=== PATIENT | female | born 1990 | race Hispanic/Latino ===

== ENCOUNTER 2021-01-17 14:50 | Observation (INO) | payer BC ==
[2021-01-17 15:17] LABS: #Basophils 0.1 thou/uL (0.0-0.2); #Eosinphils 0.1 thou/uL (0.0-0.7); #Lymphocytes 2.2 thou/uL (1.20-3.40); #Monocytes 1.2 thou/uL (0.11-0.59); #Neutrophils 14.2 thou/uL (1.40-6.50); %Basophils 0.3 % (0.0-1.0); %Eosinophils 0.8 % (0.0-10.0); %Lymphocytes 12.2 % (21.0-51.0); %Monocytes 6.8 % (0.0-10.0); %Neutrophils 79.9 % (42.0-75.0); Hemoglobin 12.5 g/dL (12.0-16.0); Mean Corpuscular HGB CONC 35.2 g/dL (32.0-36.0); Mean Corpuscular Hemoglobin 29.6 pg (27.0-31.0); Mean Corpuscular Volume 84.2 fL (78.0-98.0); Mean Platelet Volume 7.5 fL (7.4-10.4); Platelet Count 378 thou/uL (130-400); RBC Distribution Width 12.9 % (11.5-14.5); Red Blood Cell (RBC) Count 4.22 mill/uL (4.20-5.40); White Blood Cell (WBC) Count 17.8 thou/uL (4.8-10.8)
[2021-01-17 15:39] LABS: ALT (SGPT) 8 U/L (8-55); AST (SGOT) 9 U/L (5-34); Alkaline Phosphatase 65 U/L (40-110); Anion Gap 13 mmol/L (10-20); BUN (Urea Nitrogen) 8 mg/dL (7.0-18.7); Bilirubin, Total 0.6 mg/dL (0.2-1.2); Calc. Creatinine Clearance 0 mL/min (70-130); Calcium 9.1 mg/dL (7.8-10.44); Carbon Dioxide 24 mmol/L (22-29); Chloride 100 mmol/L (98-107); Globulin 4.2 g/dL (2.4-3.5); Glucose 106 mg/dL (70-105); Lipase 69 U/L (8-78); Potassium 3.8 mmol/L (3.5-5.1); Protein, Total 8.2 g/dL (6.0-8.3); Sodium 133 mmol/L (136-145)
[2021-01-17] MEDS ORDERED: Ondansetron PF 4 MG/2 ML Vial ONE (17:04)
[2021-01-17] MEDS ORDERED: Morphine 4 MG/ML VIAL ONE ×2 (17:04→20:01)
[2021-01-17] MEDS ORDERED: Famotidine/PF 20 mg/2ml Vial ONE (20:24)
[2021-01-17] MEDS ORDERED: Ondansetron PF 4 MG/2 ML Vial IVP PRN (22:14)
[2021-01-17] MEDS ORDERED: Piperacillin/Tazobactam 3.375 GM in Sodium Chloride 0.9% 100 ML IVPB SCH (23:00)
[2021-01-17 23:04] VITALS: BMI 44.6
[2021-01-17] MEDS: Sodium Chloride 0.9% 1,000 ML IV SCH (23:47)
[2021-01-17 23:51] LABS: Bilirubin Negative (Negative); Blood, Urine Negative (Negative); Clarity Clear (Clear); Glucose, Urine (Dipstick) Normal (Negative); Ketone, Urine 100 mg/dL (Negative); Leukocyte Negative Leu/uL (Negative); Nitrite Negative (Negative); Protein, Urine (Dipstick) Negative (Neg-Trace); RBC/HPF 0-3 HPF (0-3); Specific Gravity, Urine 1.023 (1.002-1.036); Squamous Epithelial 0-3 HPF (0-3); Urobilinogen Normal mg/dL (Less than 2)
[2021-01-17 23:52] LABS: Bacteria/HPF None Seen HPF (None Seen)
[2021-01-18] MEDS: Morphine 2 MG/ML VIAL SLOW IVP PRN ×2 (00:42→17:59)
[2021-01-18] MEDS: Sodium Chloride 0.9% 1,000 ML IV SCH ×5 (03:49→21:01)
[2021-01-18] MEDS: Piperacillin/Tazobactam 3.375 GM in Sodium Chloride 0.9% 100 ML IVPB SCH ×3 (04:11→21:00)
[2021-01-18 07:02] LABS: #Eosinphils 0.3 thou/uL (0.0-0.7); #Lymphocytes 2.2 thou/uL (1.20-3.40); #Monocytes 1.2 thou/uL (0.11-0.59); #Neutrophils 10.4 thou/uL (1.40-6.50); %Basophils 0.2 % (0.0-1.0); %Eosinophils 1.9 % (0.0-10.0); %Lymphocytes 15.4 % (21.0-51.0); %Monocytes 8.4 % (0.0-10.0); %Neutrophils 74.1 % (42.0-75.0); Hemoglobin 11.3 g/dL (12.0-16.0); Mean Corpuscular HGB CONC 33.6 g/dL (32.0-36.0); Mean Corpuscular Volume 86.3 fL (78.0-98.0); Mean Platelet Volume 7.8 fL (7.4-10.4); Platelet Count 336 thou/uL (130-400); RBC Distribution Width 12.9 % (11.5-14.5)
[2021-01-18 07:22] LABS: ALT (SGPT) 16 U/L (8-55); AST (SGOT) 21 U/L (5-34); Albumin 3.3 g/dL (3.5-5.0); Alkaline Phosphatase 67 U/L (40-110); Anion Gap 12 mmol/L (10-20); BUN (Urea Nitrogen) 5 mg/dL (7.0-18.7); Bilirubin, Total 0.7 mg/dL (0.2-1.2); Calc. Creatinine Clearance 193 mL/min (70-130); Calcium 8.2 mg/dL (7.8-10.44); Carbon Dioxide 22 mmol/L (22-29); Chloride 106 mmol/L (98-107); Globulin 3.7 g/dL (2.4-3.5); Glucose 97 mg/dL (70-105); Potassium 3.7 mmol/L (3.5-5.1); Sodium 136 mmol/L (136-145)
[2021-01-18 09:07] LABS: Lactic Acid 0.7 mmol/L (0.5-2.2)
[2021-01-18] MEDS: Pantoprazole 40 MG VIAL IVP SCH ×2 (09:21→21:01)
[2021-01-18 12:46] LABS: SARS-CoV-2 PCR by NAA Not Detected (NotDetected)
[2021-01-19] MEDS: Sodium Chloride 0.9% 1,000 ML IV SCH ×3 (02:00→12:34)
[2021-01-19 03:55] LABS: Pregnancy Test - Urine (BHCG) Negative (Negative); Pregu Control Background? CLEAR/WHITE (CLR/WHITE); Pregu Control Bar Appear? YES (CONTROL BAR); Specific Gravity 1.023 (1.002-1.036)
[2021-01-19] MEDS: Piperacillin/Tazobactam 3.375 GM in Sodium Chloride 0.9% 100 ML IVPB SCH ×2 (04:30→12:10)
[2021-01-19] MEDS ORDERED: PROPOFOL 200 MG/20 ML VIAL ONE (08:25)
[2021-01-19] MEDS ORDERED: Promethazine HCl 25 MG/ML VIAL IM PRN (08:40)
[2021-01-19] MEDS ORDERED: Ondansetron HCl/PF 4 MG/2 ML Vial IVP PRN (08:40)
[2021-01-19] MEDS ORDERED: Promethazine HCl 25 MG/ML VIAL IVPB PRN (08:40)
[2021-01-19] MEDS: Pantoprazole 40 MG VIAL IVP SCH (09:32)
[2021-01-19 18:21] VITALS: BP 98/66; TEMP 98.3
== END 2021-01-19 17:29 | disposition home or self-care (01) ==
LOC: ERS 14:50 → T4-B 20:47
PROVIDERS: ADMIT Internal Medicine; ATTEND Internal Medicine
PROC: 0DJ08ZZ Inspection of Upper Intestinal Tract, Via Natural or Artificial Opening Endoscopic (ICD-10-PCS; principal; 2021-01-19)
DX: K85.90 Acute pancreatitis without necrosis or infection, unspecified (principal); N10 Acute pyelonephritis; B95.1 Streptococcus, group B, as the cause of diseases classified elsewhere; D72.829 Elevated white blood cell count, unspecified; E66.3 Overweight; Z68.41 Body mass index [BMI] 40.0-44.9, adult; Z79.3 Long term (current) use of hormonal contraceptives; Z79.899 Other long term (current) drug therapy; Z20.822 Contact with and (suspected) exposure to COVID-19; R10.10 Upper abdominal pain, unspecified
CPT/HCPCS: 36415; 74177; 80053; 81001; 81025; 83605; 83690; 85025; 87077; 87086; 96365; 96366; 96374; 96375; 96376; C9113; G0378; J2270; J2405; J2543; J2704; J3490; J7050; S0028; U0003; U0005

== ENCOUNTER 2022-02-27 13:12 | Outpatient (CLI) | payer BC | END 2022-02-27 13:13 | disposition home or self-care (01) | LOC: BICULT 13:12 | PROVIDERS: ATTEND Internal Medicine | DX: N39.0 Urinary tract infection, site not specified (principal) | CPT/HCPCS: 76770 ==

== ENCOUNTER 2022-12-16 15:35 | Outpatient (CLI) | payer BC | END 2022-12-16 15:36 | disposition home or self-care (01) | LOC: RAD 15:35 | PROVIDERS: ATTEND Internal Medicine | DX: M25.462 Effusion, left knee (principal) ==

== ENCOUNTER 2024-12-16 14:21 | Outpatient (CLI) | payer BC ==
[2024-12-16] MEDS ORDERED: Iopamidol 370 76% 100 ML VIAL ONE (14:28)
== END 2024-12-16 14:22 | disposition home or self-care (01) ==
LOC: CT 14:21
PROVIDERS: ATTEND Internal Medicine
DX: R10.9 Unspecified abdominal pain (principal); K57.32 Diverticulitis of large intestine without perforation or abscess without bleeding; R93.2 Abnormal findings on diagnostic imaging of liver and biliary tract
CPT/HCPCS: 74177; Q9967